=== PATIENT | male | born 1985 | race Hispanic/Latino ===

== ENCOUNTER 2022-04-14 14:39 | Emergency (ER) | payer SELFPAY ==
[~2022-04-14] VITALS: Ht 177.8 cm; Wt 81.6 kg
[2022-04-14 15:50] LABS: BASOPHILS % (AUTO) 0.3 % (0.0-5.0); EOSINOPHILS % (AUTO) 2.7 % (0.0-8.0); HEMATOCRIT 42.2 % (42-54); LYMPHOCYTES % (AUTO) 19.5 % (21.0-51.0); MEAN CORPUSCULAR HEMOGLOBIN 28.6 pg (27.0-33.0); MEAN CORPUSCULAR HGB CONC 35.5 g/dL (32.0-36.0); MEAN CORPUSCULAR VOLUME 80.5 fL (79-99); MONOCYTES % (AUTO) 8.6 % (3.0-13.0); NEUTROPHILS % (AUTO) 68.5 % (40.0-77.0); PLATELET COUNT (AUTO) 249 K/uL (130-400); RED BLOOD CELL COUNT(AUTO) 5.24 MIL/uL (4.50-6.20); WHITE BLOOD COUNT (AUTO) 9.2 K/uL (4.8-10.8)
[2022-04-14 16:02] LABS: CREATININE 0.9 mg/dL (0.5-1.5); POTASSIUM 3.9 mmol/L (3.5-5.1)
[2022-04-14 16:06] LABS: ALBUMIN 4.1 g/dL (3.5-5.0); TOTAL PROTEIN, SERUM 7.4 g/dL (6.0-8.3)
[2022-04-14] MEDS: KETOROLAC 30MG VIAL (30MG/ML) IVP ONE (16:37)
[2022-04-14] MEDS: AMPICILLIN/SULBAC 1.5GM VIAL IV ONE (16:37)
[2022-04-14] MEDS ORDERED: PENI500T2 PO (16:44)
[2022-04-14] MEDS ORDERED: DICL50TA9 PO (16:44)
[2022-04-14 17:05] VITALS: BP 119/83
== END 2022-04-14 17:04 | disposition home or self-care (01) ==
LOC: EDBD 14:39 → EDH 14:39
DX: K04.7 Periapical abscess without sinus (principal); R22.0 Localized swelling, mass and lump, head; Z90.49 Acquired absence of other specified parts of digestive tract
CPT/HCPCS: 99284; 96365; 96375; 80053; 85025; 36415; J1885; J0295

== ENCOUNTER 2024-11-04 09:05 | Emergency (ER) | payer BC ==
[~2024-11-04] VITALS: Ht 177.8 cm; Wt 83.9 kg
[~2024-11-04 09:05] MED LIST: DICL50TA9 PO; PENI500T2 PO
[2024-11-04 09:29] LABS: HEMATOCRIT 43.7 % (42-54); IMMATURE GRANULOCYTE ABSOLUTE 0.02 K/uL (0-1); LYMPHOCYTES # (AUTO) 0.6 K/uL (1.0-4.8); LYMPHOCYTES % (AUTO) 8.8 % (21.0-51.0); MEAN CORPUSCULAR HEMOGLOBIN 28.6 pg (27.0-33.0); MEAN CORPUSCULAR VOLUME 81.7 fL (79-99); MONOCYTES # (AUTO) 0.4 K/uL (0.1-1.0); MONOCYTES % (AUTO) 5.3 % (3.0-13.0); NEUTROPHILS # (AUTO) 5.8 K/uL (1.8-7.7); NEUTROPHILS % (AUTO) 85.6 % (40.0-77.0); PLATELET COUNT (AUTO) 170 K/uL (130-400); RED BLOOD CELL COUNT(AUTO) 5.35 MIL/uL (4.50-6.20); RED CELL DISTRIBUTION WIDTH 12.2 % (11.0-15.5); WHITE BLOOD COUNT (AUTO) 6.7 K/uL (4.8-10.8)
[2024-11-04 09:41] LABS: CREATININE 0.9 mg/dL (0.5-1.3); POTASSIUM 3.6 mmol/L (3.5-5.1)
--- NOTE | 2024-11-04 09:57 | HMCIMG ---
CHEST 1VW HISTORY: Cough COMPARISON: None FINDINGS: A frontal projection of the chest was obtained. There are bilateral pulmonary infiltrates suggestive of pulmonary vascular congestion with possible superimposed pneumonitis. The heart is borderline enlarged. Degenerative changes are seen No evidence of aortic calcification is seen. IMPRESSION: 1. Bilateral pulmonary infiltrates are seen suggestive of pulmonary vascular congestion with possible superimposed pneumonitis.
[2024-11-04] MEDS: ibuPROFEN 800 MG TAB PO ONE (10:17)
[2024-11-04] MEDS: ondanSETRON 4MG INJ ONE (10:18)
[2024-11-04] MEDS: ondanSETRON 4MG INJ IVP ONE (10:18)
[2024-11-04 10:28] LABS: INFLUENZA TYPE A Negative For Type A (NEGATIVE); INFLUENZA TYPE B Negative For Type B (NEGATIVE); SARS-CoV-2, RNA, NAAT NEGATIVE SARS CoV-2 (NEGATIVE)
[2024-11-04 11:00] VITALS: TEMP 99
[2024-11-04] MEDS: dexaMETHasone SOD PHOSPHATE 4 MG/ML 1ML VIAL IVP ONE (11:17)
[2024-11-04] MEDS: IpraTROPium/alBUTERol SULFATE 3 ML SOLUTION IH ONE (11:32)
[2024-11-04 11:35] VITALS: PULSE 85; RESP 18
--- NOTE | 2024-11-04 13:25 | ERN ---
General Chief Complaint: Cough Stated Complaint: +FLU, EXPOSED TO FAMILY W/TB Time Seen by MD: 09:08 Source: patient History of Present Illness Initial Comments Patient is a 38-year-old male coming in to be evaluated for cough and congestion. Patient states that the symptoms began a couple of weeks ago but progressively got worse. He was diagnosed with influenza recently he was currently on Tamiflu. He states he was started feeling worse so he decided to come in for further evaluation. Allergies: Coded Allergies: No Known Drug Allergies (Unverified Allergy, Unknown, 04/14/22) Home Meds Active Scripts Prednisone (Prednisone) 5 Mg Tablet, 1 TAB PO BID for 7 Days, #14 TAB 0 Refills Prov:OVI VASQUES MD 11/04/24 Albuterol Sulfate (Ventolin Hfa) 90 Mcg Hfa.aer.ad, 2 PUFF IH Q4HPRN PRN for wheezing for 30 Days, #18 GM 0 Refills Prov:OVI VASQUES MD 11/04/24 Doxycycline Hyclate (Doxycycline Hyclate) 100 Mg Capsule, 1 CAP PO BID for 10 Days, #20 CAP 0 Refills Prov:OVI VASQUES MD 11/04/24 Penicillin V Potassium (Penicillin V Potassium) 500 Mg Tablet, 1 TAB PO TID for 7 Days, #21 TAB 0 Refills Prov:NATALIE LOPEZ MD 04/14/22 Diclofenac Sodium (Diclofenac Sodium) 50 Mg Tablet.dr, 50 MG PO TIDP PRN for SEVERE PAIN (7-10), #20 TAB 0 Refills Prov:NATALIE LOPEZ MD 04/14/22 Past Medical History Past Medical History: No Pertinent History Medical History Other: GASTRITTIS, Past Surgical History: None Social History Social History: Other ROS Dictation CONSTITUTIONAL: No chills, no fever, no weakness, no diaphoresis, no malaise. HEAD/FACE: No signs of trauma. EENT: No eye pain, no blurred vision, no tearing, no double vision, no ear pain, no ear discharge, no nose pain, no nasal congestion, no throat pain, no throat swelling, no mouth pain. RESPIRATORY: cough, no orthopnea, no SOB, no stridor, no wheezing. CARDIOVASCULAR: No chest pain, no edema, no palpitations, no syncope. GASTROINTESTINAL/ABDOMINAL: No abdominal pain, no constipation, no diarrhea, no nausea, no vomiting. GENITOURINARY: No abnormal discharge, no dysuria, no frequent urination, no hematuria. No complaints of pain in the genitals. MUSCULOSKELETAL: No back pain, no gout, no joint pain, no joint swelling, no muscle pain, no muscle stiffness, no neck pain. INTEGUMENTARY: No change in color, no change in hair/nails, no dryness, no lesion, no lumps, no rash. NEUROLOGICAL/PSYCH: No anxiety, not depressed, no emotional problem, no headache, no numbness, no pre-existing deficit, no history of seizures, no tremors, no weakness. HEMATOLOGIC/LYMPHATIC: Not anemic, no history of blood clots, no apparent bleeding, no bruising, glands not swollen. All Systems Negative, Except as Noted. Physical Exam Physical Exam Dictation VITAL SIGNS: Reviewed. GENERAL APPEARANCE: Alert, oriented x3, no acute distress, obese. HEAD AND FACE: Non-traumatic. EYES: PERRL, pink conjunctivas, eyelid no trauma, anterior chamber clear. EARS: Pinnas intact and no signs of trauma or erythema. Ear canals clear and no discharge. TMs no erythema. NOSE: No discharge, no bleeding. OROPHARYNX: Mouth normal, teeth no caries, tongue pink. Pharynx clear, no erythema. Tonsils no exudates, no abscesses noted. Mucous membrane moist. NECK: Supple, non-tender, no thyromegaly, no masses, no JVD, no bruits. BREAST: Deferred. CHEST: No tenderness, no crepitus, no paradoxical movement, no retractions. LUNGS: Clear, well-ventilated, symmetric, rales, no wheezing, no rhonchi, no stridor, good breath sounds bilaterally. HEART: Regular rate, regular rhythm, no murmur, no gallops. VASCULAR: No peripheral edema. ABDOMEN: Soft, positive bowel sounds, nondistended, no guarding, nontender, no rebound, no masses no hepatomegaly, no splenomegaly, no Vicente's sign, no herni as. RECTAL: Deferred. GENITAL: Deferred. NEUROLOGICAL: Normal speech, gross motor function intact, gross sensory function intact. MUSCULOSKELETAL: Neck nontender, full range of motion, back nontender, full range of motion. EXTREMITIES: Nontender, full range of motion. SKIN: Color pink, dry, no turgor, no rash, no lacerations, no abrasions, no contusions. LYMPHATICS: Deferred. Results Laboratory and Microbiology Lab and Micro Result Laboratory Tests Test 11/04/24 09:22 11/04/24 09:58 11/04/24 12:51 White Blood Count 6.7 K/uL (4.8-10.8) Red Blood Count 5.35 MIL/uL (4.50-6.20) Hemoglobin 15.3 g/dL (14.0-18.0) Hematocrit 43.7 % (42-54) Mean Corpuscular Volume 81.7 fL (79-99) Mean Corpuscular Hemoglobin 28.6 pg (27.0-33.0) Mean Corpuscular Hemoglobin Concent 35.0 g/dL (32.0-36.0) Red Cell Distribution Width 12.2 % (11.0-15.5) Platelet Count 170 K/uL (130-400) Mean Platelet Volume 9.6 fL (7.5-10.5) Immature Granulocyte % (Auto) 0.3 % (0-1) Neutrophils (%) (Auto) 85.6 % (40.0-77.0) H Lymphocytes (%) (Auto) 8.8 % (21.0-51.0) L Monocytes (%) (Auto) 5.3 % (3.0-13.0) Eosinophils (%) (Auto) 0.0 % (0.0-8.0) Basophils (%) (Auto) 0.0 % (0.0-5.0) Neutrophils # (Auto) 5.8 K/uL (1.8-7.7) Lymphocytes # (Auto) 0.6 K/uL (1.0-4.8) L Monocytes # (Auto) 0.4 K/uL (0.1-1.0) Eosinophils # (Auto) 0.00 K/uL (0.00-0.70) Basophils # (Auto) 0.00 K/uL (0.00-0.20) Absolute Immature Granulocyte (auto 0.02 K/uL (0-1) Nucleated Red Blood Cells 0.0 % (0.0-0.19) White Cell Morphology Comment See comments Sodium Level 137 mmol/L (136-145) Potassium Level 3.6 mmol/L (3.5-5.1) Chloride Level 97 mmol/L (101-111) L Carbon Dioxide Level 26 mmol/L (21-32) Blood Urea Nitrogen 10 mg/dL (7-18) Creatinine 0.9 mg/dL (0.5-1.3) Glomerular Filtration Rate Calc 113 mL/min (>90) Random Glucose 142 mg/dL (70-105) H Lactic Acid Level 2.4 mmol/L (0.8-2.5) 1.6 mmol/L (0.8-2.5) Total Calcium 8.6 mg/dL (8.5-10.1) Total Creatine Kinase 219 U/L (21-232) Troponin I High Sensitivity < 4 ng/L (4-75) L Procalcitonin < 0.05 ng/mL (0.05-0.5) L Influenza Type A Antigen Negative For Type A Influenza Type B Antigen Negative For Type B SARS-CoV-2, RNA, NAAT NEGATIVE SARS CoV-2 Labs Reviewed?: Yes EKG/XRAY/US/CT/MRI EKG Comment 11/04/2024 time 2:53 p.m. Ventricular rate 79 Sinus rhythm [place] [address] wave elevation or depression X-RAY Comment IMAGING REPORT Signed PATIENT: JACKSON GOMEZ I MR#: [id number] : 1985 SEX: M AGE: 38 LOCATION: [facility] ORDER 1 STATUS: [facility] REPORT#: [id number] SERVICE [id number] REASON: cough ORDERING PHYSICIAN: OVI VASQUES MD PROCEDURE: CXR1VW - CHEST 1VW CHEST 1VW HISTORY: Cough COMPARISON: None FINDINGS: A frontal projection of the chest was obtained. There are bilateral pulmonary infiltrates suggestive of pulmonary vascular congestion with possible superimposed pneumonitis. The heart is borderline enlarged. Degenerative changes are seen No evidence of aortic calcification is seen. IMPRESSION: 1. Bilateral pulmonary infiltrates are seen suggestive of pulmonary vascular congestion with possible superimposed pneumonitis. DICTATED BY: FEDERICA NEGRETE MD DATE: 11/04/24953 ELECTRONICALLY SIGNED BY: FEDERICA NEGRETE MD DATE: 11/04/24956 MDM MDM: Differential diagnosis: Pneumonia, flu Rationale: Tests considered and ordered secondary to shared decision making include: Patient is a 38-year-old male coming in to be evaluated for cough and congest ion. Patient states that he has a history of flu on x-ray there is some infiltrates bilaterally. Patient states he feels much better with the breathing treatment. Patient will be discharged in stable condition with a diagnosis of pneumonia. CURB-65 Score for Pneumonia Severity from [employer] on 11/04/2024 All calculations should be rechecked by clinician prior to use RESULT SUMMARY: 0 points Low risk group: 0.6% 30-day mortality. Consider outpatient treatment. INPUTS: Confusion > 0 = No BUN >19 mg/dL (>7 mmol/L urea) > 0 = No Respiratory Rate ?30 > 0 = No Systolic BP <90 mmHg or Diastolic BP ?60 mmHg > 0 = No Age ?65 > 0 = No ED Course Orders Procedure Category Date Status Time Cbc With Differential LAB 11/04/24 Complete 09:09 Blood Cult ELIO 11/04/24 In Process 09:09 Urinalysis Profile LAB 11/04/24 Logged 09:09 Culture Urine ELIO 11/04/24 Logged 09:09 Creatine Kinase, Total LAB 11/04/24 Complete 09:09 Troponin I High LAB 11/04/24 Complete Sensitivity 09:09 Procalcitonin LAB 11/04/24 Complete 09:09 Lactic Acid LAB 11/04/24 Complete 09:09 Basic Metabolic Panel LAB 11/04/24 Complete 09:09 Covid Rna Naat LAB 11/04/24 Complete 09:09 Influenza Type A & B, LAB 11/04/24 Complete Rapid 09:09 Chest 1vw RAD 11/04/24 Resulted 09:09 Ibuprofen 800 Mg Tab PHA 11/04/24 Complete (Motrin) 10:30 Ondansetron 4mg Inj PHA 11/04/24 Complete (Zofran 4mg Inj) 10:30 Ondansetron 4mg Inj PHA 11/04/24 Complete (Zofran 4mg Inj) 10:16 Dexamethasone 4mg/Ml PHA 11/04/24 Complete 1ml Vial (Dexametha 11:30 Ipratropium/Albuterol PHA 11/04/24 Complete Neb (Duoneb) 11:30 Lactic Acid (Removed) LAB 11/04/24 Complete 12:34 0.9%Nacl 1000ml (Ns PHA 11/04/24 Complete 1000ml) 14:00 12 Lead Ekg Tracing- EKG 11/04/24 Complete Technical 14:40 Current Medications Medications (Trade) Dose Ordered Sig/Lian Route PRN Reason Start Time Stop Time Status Last Admin Dose Admin Albuterol (DUOneb) 2 udvial ONCE ONCE IH 11/04/24 11:30 11/04/24 11:31 DC 11/04/24 11:32 Dexamethasone Sodium Phosphate (dexaMETHasone 4MG/ML 1ML VIAL) 6 mg ONCE ONCE IVP 11/04/24 11:30 11/04/24 11:31 DC 11/04/24 11:17 Ibuprofen (moTRIN) 800 mg ONCE ONCE PO 11/04/24 10:30 11/04/24 10:31 DC 11/04/24 10:17 Ondansetron HCl (zoFRAN 4MG INJ) 4 mg ONCE ONCE IVP 11/04/24 10:30 11/04/24 10:31 DC 11/04/24 10:18 Ondansetron HCl (zoFRAN 4MG INJ) 4 mg STK-MED ONCE .ROUTE 11/04/24 10:16 11/04/24 10:16 DC Sodium Chloride 1,000 ml @ 0 mls/hr ONCE ONCE IV 11/04/24 14:00 11/04/24 14:01 DC 11/04/24 14:09 Vital Signs Date Time Temp Pulse Resp B/P (MAP) Pulse Ox O2 Delivery O2 Flow Rate FiO2 11/04/24 14:56 98.6 80 18 123/71 97 Room Air* 0 11/04/24 13:41 98.6 85 18 121/76 97 Room Air* 0 11/04/24 11:35 85 18 11/04/24 11:01 99.0 95 20 124/76 97 Room Air* 0 11/04/24 10:17 102.9 11/04/24 09:54 103.1 107 20 129/76 97 Room Air* 0 11/04/24 09:08 104.2 107 22 119/74 97 Room Air 0 DX & DISP Disposition: Discharge Departure Impression: Primary Impression: Pneumonia Additional Impression: Influenza Condition: Stable Scripts Prednisone (Prednisone) 5 Mg Tablet 1 TAB PO BID for 7 Days, #14 TAB 0 Refills Prov: OVI VASQUES MD 11/04/24 Albuterol Sulfate (Ventolin Hfa) 90 Mcg Hfa.aer.ad 2 PUFF IH Q4HPRN PRN for wheezing for 30 Days, #18 GM 0 Refills Prov: OVI VASQUES MD 11/04/24 Doxycycline Hyclate (Doxycycline Hyclate) 100 Mg Capsule 1 CAP PO BID for 10 Days, #20 CAP 0 Refills Prov: OVI VASQUES MD 11/04/24 Additional Instructions: FOLLOW-UP WITH PRIMARY CARE PROVIDER IN 1 TO 2 DAYS. TAKE MEDICATIONS DIRECTED HERE IN THE EMERGENCY ROOM. OKAY TO CONTINUE HOME MEDICATIONS UNLESS OTHERWISE DISCUSSED DURING YOUR VISIT IN THE EMERGENCY ROOM TODAY. RETURN TO YOUR NEAREST EMERGENCY ROOM IF SYMPTOMS WORSEN OR IF THERE IS NO IMPROVEMENT. CALL 911 IF YOU NEED IMMEDIATE ASSISTANCE. TAKE TYLENOL [id number] NEEDED AND IF NO CONTRAINDICATIONS ARE PRESENT. INCREASE ORAL HYDRATION. A WOUND CULTURE OR URINE CULTURE WAS ORDERED HERE IN THE EMERGENCY ROOM DEPARTMENT PLEASE FOLLOW-UP WITH PRIMARY CARE PROVIDER AND ADVISE THEM TO GET REPEAT PORTS FROM OUR FACILITY. IF YOU HAD ANY NANNETTE WRAP/SPLINTS THAT WERE APPLIED HERE, PLEASE DO NOT REMOVE THEM UNTIL YOU SEE YOUR PRIMARY CARE OR SPECIALTY. Referrals: Referrals: NONE (PCP) DILSHAD SAINI MD Time of Disposition: 14:38 OVI VASQUES MD Nov 04, 2024 13:25
[2024-11-04] MEDS: 0.9%NACL 1000ML 1,000 ML IV ONE (14:09)
[2024-11-04] MEDS ORDERED: PRED5TAB PO (14:40)
[2024-11-04] MEDS ORDERED: DOXY100C5 PO (14:40)
[2024-11-04] MEDS ORDERED: ALBU18HF7 IH (14:40)
[2024-11-04 14:56] VITALS: BP 123/71; PULSE 80; RESP 18; TEMP 98.6; O2SAT 97
--- NOTE | 2024-11-04 15:10 | EKG ---
[facility] Test Date: 2024-11-04 Test Time: 14:53:16 Pat Name: JACKSON GOMEZ Department: ED Room: Gender: M Accounting Practice Manager: [facility] : 1985 Requested By: OVI VASQUES Order Number: [id number] Reading MD: Timothy Rueda Measurements Intervals [place] Rate: 79 P: 42 AR: 166 QRS: 102 QRSD: 100 T: 38 QT: 412 QTc: 471 Interpretive Statements Sinus rhythm Right axis deviation No previous ECG available for comparison Electronically Signed On 11-09-2024 07:12:39 CDT by Timothy Rueda Please click the below link to view image of tracing.
== END 2024-11-04 15:06 | disposition home or self-care (01) ==
LOC: EDH 09:05
DX: J11.00 Influenza due to unidentified influenza virus with unspecified type of pneumonia (principal); Z20.822 Contact with and (suspected) exposure to COVID-19; Z79.52 Long term (current) use of systemic steroids; Z79.899 Other long term (current) drug therapy
CPT/HCPCS: 99285; 96374; 71045; 87635; 96375; 82550; 84484; 80048; 85025; 87040 ×2; 87086; 87186; 87804 ×2; 83605 ×2; 36415; 93005; 94640; 84145; J1100; J7030; J2405